=== PATIENT | female | born 1990 | race Caucasian/White ===

== ENCOUNTER 2021-10-01 18:25 | Inpatient (IN) ==
[2021-10-01] MEDS ORDERED: LIDOCAINE 1% LOCAL 20 ML VIAL ONE (18:35)
[2021-10-01] MEDS ORDERED: MoRPHine SULFATE 4 MG/ML 1 ML CARP\\VIAL ONE (18:35)
[2021-10-01] MEDS ORDERED: MoRPHine SULFATE 4 MG/ML 1 ML CARP\\VIAL IV STA (18:36)
[2021-10-01] MEDS ORDERED: XYLOCAINE 1%/SOD BICARB 20 ML VIAL INFIL ONE (18:36)
--- NOTE | 2021-10-01 18:40 | Emergency Department Note ---
Impression & Plan labor, Pain in female pelvis, Vaginal bleeding ED Provider Note NAME: NICHOLAS TRIVEDI AGE: 31 SEX: F : 1990 ARRIVES VIA: Ambulance INFORMANT: Patient ED PROVIDER(S): Stephon Armenta DO CHIEF COMPLAINT: labor HPI: Patient is a 31-year-old female G1, P0 at 34 weeks and 6 days that presents to the ER following having contractions every 2 to 3 minutes since about 3 PM today. She was brought in by EMS. We received medical command call that she was in active labor delivering the child. She complains of 10 out of 10 sharp stabbing pain with contractions. No other complaints at this time. ROS: See above HPI for pertinent positives & negatives. A total of 10 systems reviewed and were otherwise negative. PAST MEDICAL HISTORY:See Below PAST SURGICAL HISTORY:See Below FAMILY HISTORY:See Below SOCIAL HISTORY:See Below HOME MEDICATIONS:See Below ALLERGIES:See Below VITALS:See Below PHYSICAL EXAMINATION: GENERAL: Sitting up in bed, alert, disheveled in moderate distress EYE EXAM: normal conjunctiva. OROPHARYNX: mucous membranes are moist NECK: supple, no nuchal rigidity, no adenopathy, non-tender LUNGS: Clear to auscultation. Normal chest wall mechanics HEART: no murmurs, S1 normal and S2 normal ABDOMEN: abdomen soft, non-tender, normo-active bowel sounds, no masses, no rebound or guarding. : Clear/bloodstained fluid leaking from the vagina with head protruding UPPER EXTREMITIES: upper extremities are grossly normal. LOWER EXTREMITIES: No pitting edema. NEURO EXAM: Normal sensorium, cranial nerves II-XII grossly intact, normal speech, no gross weakness of arms, no gross weakness of legs. MEDICAL DECISION MAKING: Patient is a 31-year-old female at 34 weeks 6 days that presents to the ER via EMS in active labor. She was brought into the trauma bay and B1. On exam head was in the vagina with hair slightly protruding from the vagina. OB and L&D were paged prior to the patient's arrival due to EMS command call and we present within minutes of arrival at present to bedside. Baby was born 34 weeks and 6 days via [employer] at bedside. Child was crying upon delivery. Child was cleaned and handed off to pediatric hospitalist Dr. Lizama. Please see pediatrics note for further evaluation of the . Please see OB's note for further laceration repair and complete delivery. BMP showed mild leukocytosis 12,000. Mild anemia 11.3. BMP with mild acidosis which was slightly gapped. LFTs bilirubin was unremarkable. Patient was admitted with child up to L&D. Patient was given morphine while in the ER. Triage Nursing notes reviewed. Limited review of prior medical records performed Vital Signs: reviewed and remarkable for no significant abnormalities Differential diagnosis: Differential diagnoses includes but is not limited to gastritis, peptic ulcer disease, GERD, gallbladder disease, pancreatitis, small bowel obstruction, acute coronary syndrome, pericarditis, ischemic bowel, irritable bowel disease, irritable bowel syndrome, appendicitis, diverticulitis, malignancy, hernia, urinary tract infection, torsion, /ectopic (if female), perforation, trauma, infectious. ER treatment provided: See below Diagnostics interpreted by me: ECG: none Cardiac Monitoring: An order was placed for continuous cardiac monitoring. The monitor shows a rate of 105 with sinus rhythm. Laboratory studies: As stated above and show below. Imaging studies: See below Consultation(s): Dr. Beckford from [facility] [employer] Dr. 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 Beliefs That Will Affect Care: None marital status: Current Living Situation: Significant Other Feels Safe at Home: Yes Allergies Allergies Allergy/AdvReac Type Severity Reaction Status Date / Time No Known Allergies Allergy Verified 10/01/21 19:34 Home Meds Home Medications Medication Instructions Recorded Confirmed No Known Home Medications 10/01/21 10/01/21 Results & Data (ED) Vital Signs Vital Signs - 24 hr 10/01/21 18:50 10/01/21 19:00 Pulse Rate 110 H 116 H Pulse Rhythm Regular Pulse Strength Normal Respiratory Rate 18 22 Respiratory Effort / Characteristics Non-Labored Spontaneous Respiratory Depth Normal Respiratory Pattern Regular Blood Pressure 119/77 160/113 H Blood Pressure Mean 128 Blood Pressure Position Lying Pulse Oximetry 98 97 Oxygen Delivery Method Room Air Room Air Sepsis Recent Fever Within 48 Hours No Sepsis New/Unexplained Change in Mental Status No Sepsis Action Taken by Nursing Physician Notified Laboratory Data Result diagrams: 10/01/21 19:49 10/01/21 18:29 Lab Results 10/01/21 10/01/21 Range/Units 18:29 18:29 WBC 12.32 H (4.8-10.8) K/uL RBC 3.56 L (4.2-5.4) M/uL Hgb 12.7 (12.0-16.0) g/dL Hct 36.0 L (37-47) % MCV 101.1 H (80-100) fL MCH 35.7 H (25-34) pg MCHC 35.3 (32-36) g/dL RDW Std Deviation 47.6 H (36.4-46.3) fL RDW Coeff of Robinson 12.9 (11.5-14.5) % Plt Count 220 (130-400) K/uL MPV 10.7 H (7.4-10.4) fL Immature Gran % (Auto) 0.2 % Neut % (Auto) 77.0 % Lymph % (Auto) 17.0 % [place] % (Auto) 5.6 % Eos % (Auto) 0.1 % Baso % (Auto) 0.1 % Neut # (Auto) 9.49 H (1.4-6.5) K/uL Lymph # (Auto) 2.09 (1.2-3.4) K/uL [place] # (Auto) 0.69 H (0.11-0.59) K/uL Eos # (Auto) 0.01 (0-0.5) K/uL Baso # (Auto) 0.01 (0-0.2) K/uL Immature Gran # (Auto) 0.03 H (0.00-0.02) K/uL Sodium 135 L (136-145) mmol/L Potassium 3.8 (3.5-5.1) mmol/L Chloride 101 (98-107) mmol/L Carbon Dioxide 18 L (21-32) mmol/L Anion Gap 16 H (3-11) BUN 11 (6-23) mg/dl Creatinine 0.58 L (0.6-1.2) mg/dl Est Cr Clr Drug Dosing Not Reportable Est GFR ( Amer) 144.4 ml/min Est GFR (Non-Af Amer) 124.6 ml/min BUN/Creatinine Ratio 19.0 (10-20) Glucose 113 H (70-99(Fasting)) mg/dl Calcium 9.4 (8.5-10.1) mg/dl Total Bilirubin 0.3 (0.2-1.0) mg/dl AST 18 (13-39) U/L ALT 13 (7-52) U/L Alkaline Phosphatase 183 H (34-104) U/L Total Protein 7.2 (6.0-8.3) gm/dl Albumin 3.8 (3.4-5.0) gm/dl Globulin 3.4 (2.5-4.0) gm/dl Albumin/Globulin Ratio 1.1 (0.9-2) Administered Medications Benzocaine (Benzocaine 20% Aer Spr 82.5 Gm Can) 1 appln EXT PRN PRN PRN Reason: Perineal Discomfort Stop: 10/31/21 19:02 Last Admin: 10/01/21 19:58 Dose: 82.5 appln Documented by: [id number] Oxytocin (Pitocin) 30 units in 500 mls @ 333.333 mls/hr IV .Q1H30M PRN; Protocol PRN Reason: Bleeding Control Stop: 10/31/21 19:02 Last Admin: 10/01/21 19:59 Dose: 20 units/hr, 333.3 mls/hr Documented by: [id number] Cosigned by: [id number] Ibuprofen (Ibuprofen 600 Mg Tab) 600 mg PO Q4H PRN PRN Reason: Pain/MANUEL/Cramping/Fever Stop: 10/31/21 19:02 Last Admin: 10/01/21 19:58 Dose: 600 mg Documented by: [id number] Discontinued Medications Lidocaine HCl (Lidocaine 1% Local 20 Ml Vial) Confirm Administered Dose 20 ml .ROUTE .STK-MED ONE Stop: 10/01/21 18:36 Last Admin: 10/01/21 19:06 Dose: 20 ml Documented by: [id number] Lidocaine HCl (Xylocaine 1%/Sod Bicarb 20 Ml Vial) 20 ml INFIL NOW ONE Stop: 10/01/21 18:37 Last Admin: 10/01/21 19:08 Dose: Not Given Documented by: [id number] Morphine Sulfate (Morphine Sulfate 4 Mg/Ml 1 Ml Carp\Vial) Confirm Administered Dose 4 mg .ROUTE .STK-MED ONE Stop: 10/01/21 18:36 Last Admin: 10/01/21 19:07 Dose: 4 mg Documented by: [id number] Morphine Sulfate (Morphine Sulfate 4 Mg/Ml 1 Ml Carp\Vial) 4 mg IV NOW STA Stop: 10/01/21 18:37 Last Admin: 10/01/21 19:08 Dose: Not Given Documented by: [id number] Discharge Plan Visit Data Chief Complaint: Vaginal Pain Stated Complaint: CHILD ED Provider: Stephon Armenta Discharge Problem: labor, Pain in female pelvis, Vaginal bleeding Patient Disposition: Admitted As Inpatient Discharge Instructions Interventions: ED Discharge Assessment Last Done: 10/01/21 18:50
[2021-10-01] MEDS ORDERED: OXYTOCIN 30 UNITS/500 ML BAG IV PRN ×2 (19:01→19:03)
[2021-10-01] MEDS ORDERED: LACTATED RINGER'S 1,000 ML IV PRN (19:01)
[2021-10-01] MEDS ORDERED: bisacodyL 10 MG SUPP PR PRN (19:03)
[2021-10-01] MEDS ORDERED: SUPERCREAM 0.870% 15 GM JAR EXT PRN (19:03)
[2021-10-01] MEDS ORDERED: BENZOCAINE 20% AER SPR 82.5 GM CAN EXT PRN (19:03)
[2021-10-01] MEDS ORDERED: ACETAMINOPHEN 325 MG TAB PO PRN (19:03)
[2021-10-01] MEDS ORDERED: DIPHTHERIA/TETANUS/PERTUSSIS 0.5 ML SYR/VIAL IM ONE (19:03)
[2021-10-01] MEDS ORDERED: HYDROCORTISONE ACETATE 25 MG SUPP PR PRN (19:03)
--- NOTE | 2021-10-01 19:09 | History & Physical Report ---
Date of Service October 01, 2021 Assessment & Plan (1) labor: (2) Antepartum anemia: (3) COVID-19 affecting in third trimester: Plan: Patient was delivered, please see delivery note Admission and Anticipated Discharge Date Admission Date: 10/01/2021 History of Present Illness Chief Complaint: Pressure Primary Care Provider: NO PCP Patient is a 31-year-old at 34 weeks and 6 days dated by last menstrual period consistent with a 10-week ultrasound who had called the answering service at approximately 5:15 PM complaining of increasing pressure and discomfort in her vagina. Had denied contractions leaking of fluid or vaginal bleeding at that time. Noted good movement. Reassurance was given and patient was informed to call back if did not improve or worsened. At that time approximately 15 minutes later her describes that the pain became so severe that she felt like she needed to push and he called 911. I was called by the ER staff that patient was arriving that was eminently delivering. When I arrived in the ER she was . Patient establish care with [facility] at 8 weeks and had appropriate care. Plications this is BMI less than 19, COVID in the third trimes ter and antepartum anemia, which she was taking oral iron for. Home Medications Medication Instructions Recorded Confirmed Type No Known Home Medications 10/01/21 10/01/21 History Patient History Social History Smoking Status: Unknown if ever smoked Preferred Language: Syriac Feels Safe at Home: Yes OB History Review of Systems All systems reviewed & are unremarkable except as noted in HPI & below Physical Exam Constitutional: WD/WN, vitals as above Respiratory: normal respiratory effort, lungs clear to auscultation Cardiovascular: RRR, no murmur, no edema Gastrointestinal (Abdomen): normal bowel sounds, soft, nontender, no hepatosplenomegaly Genitourinary: no vaginal lesions, no adnexal mass Manual OB Exam: + cervical dilation, + cervical effacement and + station 10/100/+3 Results & Data ([facility]) Vital Signs (Past 12 Hours) Vital Signs Pulse Resp BP Pulse Ox 10/01/21 19:00 116 H 22 160/113 H 97 Monitoring External Monitor Not obtained
--- NOTE | 2021-10-01 19:12 | Delivery Summary ---
Vaginal Delivery Summary Date of Service October 01, 2021 Vaginal Delivery Summary Delivery Note Delivery Summary: Patient was placed in the dorsal lithotomy position.. Upon maternal pushing the head was delivered atraumatically followed by the anterior shoulders, posterior shoulders then the remainder of the infants body. The infants mouth and nose were bulb suction below the level of the perineum. Delayed cord clamping for 60 sec. A male infant was delivered weight pending with APGARS of 8 at 1 minute and 9 at 5 minutes. The umbilical cord was clamped times two and cut. The infant was handed off to the awaiting peds staff. Cord blood gases were not obtained. The placenta delivered intact with three vessel cord. Placenta was sent to pathology. At this point we could not get Pitocin from the pharmacy for some period of time. Uterine massage was performed until uterus was deemed firm. Upon inspection of the perineum, vagina and cervix were intact. Patient was given 1 dose of morphine 4 mg, and lidocaine was injected along the planned repair site. First degree laceration was noted which was repaired with 3-0 vicryl in the usual fashion. Upon re- inspection the patient was hemostatic. Uterus again massaged and found to be firm. Needle and sponge counts were correct. Patient was stable and moved to labor and delivery. Infant was stable brought up to the nursery. When patient arrived to , thirty units of Pitocin were added to the IV fluid and allowed to run freely.
[2021-10-01 19:15] LABS: Basophils # (auto) 0.01 K/uL (0-0.2); Basophils % (auto) 0.1 %; Eosinophils # (auto) 0.01 K/uL (0-0.5); Eosinophils % (auto) 0.1 %; Hemoglobin 12.7 g/dL (12.0-16.0); Immature Granulocytes # (auto) 0.03 K/uL (0.00-0.02); Immature Granulocytes % (auto) 0.2 %; Lymphocytes # (auto) 2.09 K/uL (1.2-3.4); Mean Corpuscular Hemoglobin 35.7 pg (25-34); Mean Corpuscular Hgb Conc 35.3 g/dL (32-36); Mean Corpuscular Volume 101.1 fL (80-100); Mean Platelet Volume 10.7 fL (7.4-10.4); Monocytes # (auto) 0.69 K/uL (0.11-0.59); Monocytes % (auto) 5.6 %; Neutrophils # (auto) 9.49 K/uL (1.4-6.5); Platelet Count 220 K/uL (130-400); RDW Coefficient of Variation 12.9 % (11.5-14.5); RDW Standard Deviation 47.6 fL (36.4-46.3); Red Blood Count 3.56 M/uL (4.2-5.4); White Blood Count 12.32 K/uL (4.8-10.8)
[2021-10-01 19:31] LABS: Alanine Aminotransferase 13 U/L (7-52); Albumin Globulin Ratio 1.1 (0.9-2); Albumin Level 3.8 gm/dl (3.4-5.0); Alkaline Phosphatase 183 U/L (34-104); Anion Gap 16 (3-11); Aspartate Aminotransferase 18 U/L (13-39); Bilirubin,Total 0.3 mg/dl (0.2-1.0); Blood Urea Nitrogen 11 mg/dl (6-23); Calcium 9.4 mg/dl (8.5-10.1); Carbon Dioxide 18 mmol/L (21-32); Chloride 101 mmol/L (98-107); Est GFR (African American) 144.4 ml/min; Est GFR (Non-African American) 124.6 ml/min; Globulin 3.4 gm/dl (2.5-4.0); Glucose 113 mg/dl (70-99(Fasting)); Potassium 3.8 mmol/L (3.5-5.1); Sodium 135 mmol/L (136-145); Total Protein 7.2 gm/dl (6.0-8.3)
[2021-10-01] MEDS: IBUPROFEN 600 MG TAB PO PRN (19:58)
[2021-10-01 20:09] LABS: Hematocrit (blood only) 33.2 % (37-47); Hemoglobin 11.3 g/dL (12.0-16.0); Mean Corpuscular Hemoglobin 34.7 pg (25-34); Mean Corpuscular Volume 101.8 fL (80-100); Mean Platelet Volume 10.3 fL (7.4-10.4); Platelet Count 206 K/uL (130-400); RDW Coefficient of Variation 12.8 % (11.5-14.5); RDW Standard Deviation 46.9 fL (36.4-46.3); Red Blood Count 3.26 M/uL (4.2-5.4); White Blood Count 12.44 K/uL (4.8-10.8)
[2021-10-01] MEDS ORDERED: Flu Vaccine (Fluarix) 0.5mL SYR (Standard Dose) IM ONE (23:45)
[2021-10-01] MEDS: DOCUSATE SODIUM 100 MG CAP PO SCH (23:54)
[2021-10-02] MEDS: IBUPROFEN 600 MG TAB PO PRN ×5 (02:27→20:39)
[2021-10-02 07:09] LABS: Hematocrit (blood only) 28.4 % (37-47); Hemoglobin 9.7 g/dL (12.0-16.0); Mean Corpuscular Hemoglobin 34.9 pg (25-34); Mean Corpuscular Hgb Conc 34.2 g/dL (32-36); Mean Corpuscular Volume 102.2 fL (80-100); Mean Platelet Volume 10.6 fL (7.4-10.4); Platelet Count 165 K/uL (130-400); RDW Coefficient of Variation 12.8 % (11.5-14.5); RDW Standard Deviation 47.5 fL (36.4-46.3); Red Blood Count 2.78 M/uL (4.2-5.4)
--- NOTE | 2021-10-02 08:53 | Obstetrical Progress Note ---
Date of Service October 02, 2021 Subjective Ambulation: ambulating normally Voiding: no voiding problems Passing Gas:: Yes Diet Tolerance:: regular diet Lochia:: Small Feeding Type:: breast feeding Current Pain Level(1-10): 0 doing well bay is stable Physical Exam Constitutional WD/WN, vitals as above comfortable Results & Data ([facility]) Vital Signs (Past 12 Hours) Vital Signs Temp Pulse Resp BP Pulse Ox 10/02/21 05:00 36.6 C 75 16 115/71 100 10/02/21 00:41 36.7 C 92 H 16 116/78 100 10/01/21 23:25 37.0 C 85 18 130/74 10/01/21 21:05 91 H 18 122/74 Laboratory Results Laboratory Results - last 24 hr 10/01/21 10/01/21 10/01/21 18:29 18:29 19:49 WBC 12.32 H 12.44 H RBC 3.56 L 3.26 L Hgb 12.7 11.3 L Hct 36.0 L 33.2 L MCV 101.1 H 101.8 H MCH 35.7 H 34.7 H MCHC 35.3 34.0 RDW Std Deviation 47.6 H 46.9 H RDW Coeff of Robinson 12.9 12.8 Plt Count 220 206 MPV 10.7 H 10.3 Immature Gran % (Auto) 0.2 Neut % (Auto) 77.0 Lymph % (Auto) 17.0 [place] % (Auto) 5.6 Eos % (Auto) 0.1 Baso % (Auto) 0.1 Neut # (Auto) 9.49 H Lymph # (Auto) 2.09 [place] # (Auto) 0.69 H Eos # (Auto) 0.01 Baso # (Auto) 0.01 Immature Gran # (Auto) 0.03 H Sodium 135 L Potassium 3.8 Chloride 101 Carbon Dioxide 18 L Anion Gap 16 H BUN 11 Creatinine 0.58 L Est Cr Clr Drug Dosing Not Reportable Est GFR ( Amer) 144.4 Est GFR (Non-Af Amer) 124.6 BUN/Creatinine Ratio 19.0 Glucose 113 H Calcium 9.4 Total Bilirubin 0.3 AST 18 ALT 13 Alkaline Phosphatase 183 H Total Protein 7.2 Albumin 3.8 Globulin 3.4 Albumin/Globulin Ratio 1.1 RPR Hep Bs Antigen 10/01/21 10/01/21 10/02/21 19:49 19:49 05:59 WBC 8.00 RBC 2.78 L Hgb 9.7 L Hct 28.4 L MCV 102.2 H MCH 34.9 H MCHC 34.2 RDW Std Deviation 47.5 H RDW Coeff of Robinson 12.8 Plt Count 165 MPV 10.6 H Immature Gran % (Auto) Neut % (Auto) Lymph % (Auto) [place] % (Auto) Eos % (Auto) Baso % (Auto) Neut # (Auto) Lymph # (Auto) [place] # (Auto) Eos # (Auto) Baso # (Auto) Immature Gran # (Auto) Sodium Potassium Chloride Carbon Dioxide Anion Gap BUN Creatinine Est Cr Clr Drug Dosing Est GFR ( Amer) Est GFR (Non-Af Amer) BUN/Creatinine Ratio Glucose Calcium Total Bilirubin AST ALT Alkaline Phosphatase Total Protein Albumin Globulin Albumin/Globulin Ratio RPR Nonreactive Hep Bs Antigen Pending
[2021-10-02] MEDS: PRENATAL VITAMIN 1 TAB PO SCH (09:30)
[2021-10-02] MEDS: DOCUSATE SODIUM 100 MG CAP PO SCH ×2 (09:30→20:40)
[2021-10-02] MEDS ORDERED: bisacodyL 5 MG TABEC PO SCH (20:00)
[2021-10-03] MEDS: IBUPROFEN 600 MG TAB PO PRN ×3 (02:33→13:20)
[2021-10-03 06:38] LABS: Hematocrit (blood only) 27.9 % (37-47); Hemoglobin 9.2 g/dL (12.0-16.0)
[2021-10-03] MEDS: DOCUSATE SODIUM 100 MG CAP PO SCH (09:15)
[2021-10-03] MEDS: PRENATAL VITAMIN 1 TAB PO SCH (09:15)
== END 2021-10-03 18:20 | disposition home or self-care (01) | DRG 805 ==
LOC: ED 18:25 → 4S1 19:00 → 4S2 23:25
DX: O60.14X0 Preterm labor third trimester with preterm delivery third trimester, not applicable or unspecified; O99.02 Anemia complicating childbirth; O70.0 First degree perineal laceration during delivery; O62.3 Precipitate labor; Z3A.34 34 weeks gestation of pregnancy; Z37.0 Single live birth; Z86.16 Personal history of COVID-19; O99.284 Endocrine, nutritional and metabolic diseases complicating childbirth; E87.2 Acidosis

== ENCOUNTER 2023-06-23 18:27 | Inpatient (IN) ==
[2023-06-23] MEDS ORDERED: LIDOCAINE 1% LOCAL 20 ML VIAL INFIL PRN (18:31)
[2023-06-23] MEDS ORDERED: OXYTOCIN 30 UNITS/500 ML BAG IV PRN ×2 (18:31→18:48)
[2023-06-23] MEDS ORDERED: LACTATED RINGER'S 1,000 ML IV PRN (18:31)
[2023-06-23] MEDS ORDERED: LIDOCAINE 1% LOCAL 20 ML VIAL ONE (18:38)
[2023-06-23] MEDS ORDERED: BUTORPHANOL TARTRATE 1 MG/ML VIAL IV STA (18:48)
[2023-06-23] MEDS ORDERED: DIPHTHERIA/TETANUS/PERTUSSIS Vaccine (Tdap, Age 7+yrs) 0.5mL SYR/VL IM ONE (18:48)
[2023-06-23] MEDS ORDERED: HYDROCORTISONE ACETATE 25 MG SUPP PR PRN (18:48)
[2023-06-23] MEDS ORDERED: BENZOCAINE 20% SPRY 85 APPLN/85 GM CAN EXT PRN (18:48)
[2023-06-23] MEDS ORDERED: OXYTOCIN 10 UNITS/ML 10ML VIAL IM ONE (18:48)
[2023-06-23] MEDS ORDERED: bisacodyL 10 MG SUPP PR PRN (18:48)
[2023-06-23] MEDS ORDERED: ACETAMINOPHEN 325 MG TAB PO PRN (18:48)
--- NOTE | 2023-06-23 18:52 | History & Physical Report ---
Date of Service June 23, 2023 Assessment & Plan (1) 38 weeks gestation of : Plan: Admit, IV access when able to obtain Routine labs, anticipate spontaneous vaginal delivery Due to patient's delivery H&P was written after delivery (2) History of delivery, currently : (3) Antepartum anemia complicating in third trimester: History of Present Illness Chief Complaint: Vaginal pressure Primary Care Provider: NO PCP Patient is a pleasant 33-year-old -1-0-1 at 38 weeks and 2 days dated by last menstrual period consistent with 8-week ultrasound, clinic earlier with a complaint of vaginal pressure. She had the same complaint her last and had a precipitous delivery in the emergency department at 34 weeks. I called patient and had her come to labor and delivery which was a 30-minute drive for her. Upon presentation called by nursing staff that she was complete and pushing. has been complicated by antepartum anemia, and history of delivery. 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 Beliefs That Will Affect Care: None marital status: Current Living Situation: Significant Other Feels Safe at Home: Yes Assistive Devices: None OB History -1-0-1 previous spontaneous vaginal delivery with a precipitous delivery of a 34 weeker at [facility] in 2021 [employer] History See record Review of Systems All systems reviewed & are unremarkable except as noted in Subjective Physical Exam Constitutional: WD/WN, vitals as above Genitourinary: Cervix: 06/21/+2 AROM was performed with clear fluid Results & Data Vital Signs (Past 12 Hours) Vital Signs Pulse BP 06/23/23 18:43 99 H 130/69 Code Status & VTE Plan VTE Prophylaxis Plan VTE Prophylaxis will be ordered: No Reason for no VTE drug order: Treatment not indicated Monitoring External Monitor heart tones 120s with positive accelerations no decelerations
--- NOTE | 2023-06-23 18:58 | Delivery Summary ---
Vaginal Delivery Summary Date of Service June 23, 2023 Vaginal Delivery Summary Delivery Note History synopsis: Delivery Summary: Patient was placed in the dorsal lithotomy position. She was prepped and draped in the usual sterile fashion. AROM was performed with clear fluid. At this time nursing staff had not been able to establish IV access. Upon maternal pushing the head was delivered atraumatically followed by the anterior shoulders, posterior shoulders then the remainder of the infants body. The infant was immediately placed on mother's abdomen, dried and stimulated. Delayed cord clamping for 60 seconds was performed. The infants mouth and nose were bulb suctioned by nursing staff. A female infant was delivered at 1833, weight pending with APGARS of 8 at 1 minute and 9 at 5 minutes. The infant was handed off to the awaiting nursing staff. Cord blood gases were not obtained. The placenta delivered intact with three vessel cord at 1836. Placenta was sent to pathology. IM Pitocin was give. Uterine massage was performed until uterus was deemed firm. Upon inspection of the perineum, cervix were intact. Second degree laceration was noted and injected with local lidocaine, which was repaired with 3-0 vicryl in the usual fashion. Upon re-inspection the patient was hemostatic. Uterus again massaged and found to be firm. Needle and sponge counts were correct. Patient was stable and allowed to recover in L&D room. was stable and remained in room with mother in the labor and delivery unit.
[2023-06-23 19:11] LABS: Hemoglobin 11.8 g/dl (12.0-16.0); Mean Corpuscular Hemoglobin 34.8 pg (25.0-34.0); Mean Corpuscular Hgb Conc 34.7 g/dL (32.0-36.0); Mean Corpuscular Volume 100.3 fL (80.0-100.0); Mean Platelet Volume 10.9 fL (9.4-12.4); Platelet Count 183 K/uL (130-400); RDW Coefficient of Variation 12.2 % (11.5-14.5); RDW Standard Deviation 44.5 fL (36.4-46.3); Red Blood Count 3.39 M/uL (4.20-5.40); White Blood Count 8.57 K/ul (4.8-10.8)
[2023-06-23] MEDS: IBUPROFEN 600 MG TAB PO PRN (19:11)
[2023-06-23] MEDS ORDERED: OXYTOCIN 10 UNITS/ML VIAL ONE (19:45)
[2023-06-23] MEDS: DOCUSATE SODIUM 100 MG CAP PO SCH (21:06)
[2023-06-24] MEDS: IBUPROFEN 600 MG TAB PO PRN ×4 (02:41→20:38)
[2023-06-24 07:36] LABS: Hematocrit (blood only) 32.2 % (37.0-47.0); Hemoglobin 11.3 g/dl (12.0-16.0); Mean Corpuscular Hemoglobin 35.2 pg (25.0-34.0); Mean Corpuscular Hgb Conc 35.1 g/dL (32.0-36.0); Mean Corpuscular Volume 100.3 fL (80.0-100.0); Mean Platelet Volume 10.8 fL (9.4-12.4); Platelet Count 154 K/uL (130-400); RDW Coefficient of Variation 12.1 % (11.5-14.5); RDW Standard Deviation 44.8 fL (36.4-46.3); Red Blood Count 3.21 M/uL (4.20-5.40); White Blood Count 8.38 K/ul (4.8-10.8)
[2023-06-24] MEDS: PRENATAL VITAMIN 1 TAB PO SCH (07:53)
[2023-06-24] MEDS: FERROUS SULFATE 325 MG TAB PO SCH (07:53)
[2023-06-24] MEDS: DOCUSATE SODIUM 100 MG CAP PO SCH ×2 (07:53→20:38)
--- NOTE | 2023-06-24 09:46 | Obstetrical Progress Note ---
Date of Service June 24, 2023 Subjective Ambulation: ambulating normally Voiding: no voiding problems Passing Gas:: Yes Diet Tolerance:: regular diet Lochia:: Small Feeding Type:: breast feeding Current Pain Level(1-10): 0 doing well Physical Exam Constitutional WD/WN, vitals as above Gastrointestinal (Abdomen) Inspection/Auscultation: abdomen normal to inspection abdomen soft and non-tender. fundus firm Musculoskeletal Extremities: extremities normal to inspection Skin no rashes, warm and dry Neurologic patellar DTR's 2+ bilat, sensation intact Psychiatric A+Ox3, euthymic affect Results & Data Vital Signs (Past 12 Hours) Vital Signs Temp Pulse Resp BP Pulse Ox O2 Del Method 06/24/23 07:00 36.7 C 72 16 112/73 99 Room Air 06/24/23 02:50 36.5 C 80 16 112/76 06/23/23 23:00 36.7 C 89 16 113/68 Room Air Laboratory Results 06/23/23 06/24/23 18:54 06:59 WBC 8.57 8.38 RBC 3.39 L 3.21 L Hgb 11.8 L 11.3 L Hct 34.0 L 32.2 L MCV 100.3 H 100.3 H MCH 34.8 H 35.2 H MCHC 34.7 35.1 RDW Std Deviation 44.5 44.8 RDW Coeff of Robinson 12.2 12.1 Plt Count 183 154 MPV 10.9 10.8
[2023-06-24] MEDS ORDERED: bisacodyL 5 MG TABEC PO SCH (20:00)
[2023-06-25] MEDS: IBUPROFEN 600 MG TAB PO PRN ×2 (03:55→08:57)
[2023-06-25 07:37] LABS: Hematocrit (blood only) 29.8 % (37.0-47.0); Hemoglobin 10.2 g/dl (12.0-16.0)
[2023-06-25] MEDS: FERROUS SULFATE 325 MG TAB PO SCH (08:57)
[2023-06-25] MEDS: PRENATAL VITAMIN 1 TAB PO SCH (08:57)
[2023-06-25] MEDS: DOCUSATE SODIUM 100 MG CAP PO SCH (08:58)
== END 2023-06-25 13:45 | disposition home or self-care (01) | DRG 807 ==
LOC: OPB 18:27 → 4S1 18:28 → 4E2 21:18